=== PATIENT | female | born 1985 | race Caucasian/White ===

== ENCOUNTER 2019-06-08 04:29 | Inpatient (IN) | payer MEDICAID, OTHER ==
[~2019-06-08] VITALS: Ht 167.6 cm; Wt 92.0 kg
[~2019-06-08 04:29] MED LIST: GABA-826 PO; SERT100T32 PO
--- NOTE | 2019-06-08 04:50 | NUR ---
PT TO ED WITH C/O ETOH DETOX. REPORTS LAST DRINK WAS X2 HOURS AGO. PT REPORTS "TAKING SMALL SHOTS OF TEQUILA, INSTEAD OF DRINKING OUT OF THE BOTTLE". EMS REPORTS THAT PT SPOUSE SAID SHE WAS LETHARGIC AND UNABLE TO MOVE OR STAND UP. UPON EMS ARRIVAL PT EASILY ROUSABLE AND ABLE TO MOVE ALL 4, NEEDED X2 ASSIST TO GURNEY. PT REPORTS FEELING WEAK AND DIZZY. UPON ED ARRIVAL PT MOVES ALL 4 STRONG AND EQUAL BILATERALLY, NEURO INTACT. PT AOX4, ALERT TO VOICE. 700ML NS AND 4MG ZOFRAN PROVIDED BY EMS PRIOR TO ARRIVAL.
[2019-06-08] MEDS ORDERED: SODIUM CHLORIDE 0.9% 1,000ML IVBOLUS ONE ×2 (05:30→07:00)
[2019-06-08 05:48] LABS: ALBUMIN 2.6 g/dL (3.4-5.0); CALCIUM 6.6 mg/dL (8.5-10.1); CREATININE 2.36 mg/dL (0.55-1.02)
--- NOTE | 2019-06-08 05:55 | NUR ---
PT ABLE TO AMBULATE TO WHEELCHAIR TO BATHROOM FOR COMFORT. PT GAIT STEADY WITH STANDBY ASSIST. ATTEMPTING TO PROVIDE UA AT THIS TIME.
[2019-06-08 05:56] LABS: ALKALINE PHOSPHATASE 166 U/L (45-117); ANION GAP 20 mmol/L (5-15); BILIRUBIN,TOTAL 6.4 mg/dL (0.2-1.0); CHLORIDE 91 mmol/L (98-107); TOTAL PROTEIN 5.5 g/dL (6.4-8.2)
[2019-06-08 05:58] LABS: ALANINE AMINOTRANSFERASE 129 U/L (12-78)
[2019-06-08 06:06] LABS: MEAN CORPUSCULAR HEMOGLOBIN 36.6 pg (27.0-34.8); MEAN CORPUSCULAR VOLUME 107.7 fL (80-100); RED BLOOD COUNT 3.45 x10^6/uL (3.82-5.3); RED CELL DISTRIBUTION WIDTH 20.5 % (9.6-15.2)
[2019-06-08 06:10] LABS: MD YES
[2019-06-08 06:11] LABS: MEAN PLATELET VOLUME 7.9 fL (7.4-10.4); PLATELET COUNT 57 x10^3/uL (130-400)
[2019-06-08 06:14] LABS: BAND#(MANUAL) 1.28 x10^3/uL; BANDS%(MANUAL) 29 % (0-7); LYMPH#(MANUAL) 0.31 x10^3/uL (1-3.4); LYMPHS% (MANUAL) 7 % (22-44); METAMYELOCYTES# (MANUAL) 0.09 x10^3/uL (0-0); METAMYELOCYTES% (MANUAL) 2 % (0-1); MONOS#(MANUAL) 0.31 x10^3/uL (0.3-2.7); MONOS% (MANUAL) 7 % (2-9); SEG#(MANUAL) 2.42 x10^3/uL (1.8-6.8); SEGS% (MANUAL) 55 % (42-75)
[2019-06-08 06:15] LABS: <PLATELET ESTIMATE> DECREASED; <PLT MORPHOLOGY> NORMAL PLT MORPH; ANISOCYTOSIS 1+; POLYCHROMASIA 1+
[2019-06-08 06:25] LABS: INTERNATIONAL NORMALIZED RATIO 1.26 (0.93-1.1); PROTHROMBIN TIME 13.4 Seconds (9.6-11.5)
[2019-06-08] MEDS ORDERED: LORazepam 2 MG/ML, 1ML ONE (06:25)
--- NOTE | 2019-06-08 06:28 | NUR ---
IVF ORDERED FROM PHARMACY
[2019-06-08] MEDS ORDERED: LORazepam 2 MG/ML, 1ML IVPush ONE (06:30)
[2019-06-08] MEDS ORDERED: POTASSIUM CHLORIDE 20 MEQ, MAGNESIUM SULFATE 1 GM, FOLIC ACID 1 MG, THIAMINE 200 MG, MV... IV SCH (06:30)
[2019-06-08 06:38] LABS: CULTURE INDICATED? YES; HCG UR SG 1.009 (1.003-1.030); MICROSCOPIC INDICATED
--- NOTE | 2019-06-08 06:55 | NUR ---
ASSUMED CARE WITH REPORT RECEIVED FROM JOURDAN DACOSTA. HOSPITALIST AT BEDSIDE AND REQUESTING ANOTHER BOLUS OF IV FLUIDS. LITER STARTED NOTED
[2019-06-08] MEDS ORDERED: LORazepam 1MG TABLET PO PRN ×2 (07:00)
[2019-06-08] MEDS ORDERED: LORazepam 2 MG/ML, 1ML IV PRN ×5 (07:00)
[2019-06-08] MEDS ORDERED: ONDANSETRON 2MG/ML, 2ML IVPush PRN (07:00)
[2019-06-08] MEDS ORDERED: THIAMINE 200 MG in DEXTROSE 5% 50 ML IVPB ONE (07:00)
[2019-06-08] MEDS ORDERED: ONDANSETRON ODT 4 MG PO PRN (07:00)
[2019-06-08] MEDS ORDERED: FOLIC ACID 5 MG/ML IM ONE (07:00)
[2019-06-08] MEDS ORDERED: LORazepam 0.5MG TABLET PO PRN (07:00)
[2019-06-08] MEDS ORDERED: morphine SULFATE 10 MG/ML, 1ML IVPush PRN (07:00)
[2019-06-08] MEDS ORDERED: hydrALAzine 20 MG/ML, 1ML IVPush PRN (07:00)
--- NOTE | 2019-06-08 07:14 | NUR ---
PT NOTED TO HAVE ARM FOLDED WITH NO FLUIDS INFUSING. BOYFRIEND TO HOLD ARM UNFOLDED AND LITER PUT ON PRESSURE BAG
--- NOTE | 2019-06-08 07:30 | NUR ---
IV BOLUS COMPLETED AND BANANA BAG STARTED.
[2019-06-08 07:32] LABS: TROPONIN I 0.016 ng/mL (0.000-0.045)
--- NOTE | 2019-06-08 07:55 | NUR ---
PT GAVE VERBAL CONSENT THAT BOYFRIENRadha MARTINS CAN RECEIVE INFO REGARDING PT TELEPHONICALLY
[2019-06-08] MEDS ORDERED: MAGNESIUM SULFATE PMX 2GM/50ML 50 ML IV ONE ×2 (08:00→09:30)
[2019-06-08 08:30] VITALS: BP 78/50
[2019-06-08] MEDS ORDERED: LEVOFLOXACIN/PMX 500MG/100ML 100 ML IV SCH ×2 (08:30→11:29)
[2019-06-08 08:55] VITALS: BP 92/61
[2019-06-08] MEDS ORDERED: POTASSIUM CHLORIDE 10% 20 MEQ/15 ML UDC PO ONE (09:00)
[2019-06-08] MEDS ORDERED: THIAMINE 100MG TABLET PO ONE ×2 (09:30→10:30)
[2019-06-08] MEDS ORDERED: LACTATED RINGERS 1,000 ML IV SCH ×2 (10:00→22:30)
[2019-06-08] MEDS: CHLORDIAZEPOXIDE 25 MG CAPSULE PO SCH ×3 (10:24→22:32)
[2019-06-08] MEDS: NICOTINE 14MG/24 HR PATCH.TD24 TD SCH (10:24)
[2019-06-08 12:52] VITALS: BP 89/60
[2019-06-08 17:10] VITALS: BP 90/61
[2019-06-08 18:49] LABS: ALANINE AMINOTRANSFERASE 113 U/L (12-78); ALBUMIN 2.5 g/dL (3.4-5.0); ANION GAP 18 mmol/L (5-15); CALCIUM 6.5 mg/dL (8.5-10.1); CHLORIDE 93 mmol/L (98-107); CREATININE 2.88 mg/dL (0.55-1.02)
[2019-06-08 18:52] LABS: ALKALINE PHOSPHATASE 132 U/L (45-117); BILIRUBIN,TOTAL 6.3 mg/dL (0.2-1.0); TOTAL PROTEIN 5.6 g/dL (6.4-8.2)
[2019-06-08 19:06] LABS: BASOPHILS % (AUTO) 0 % (0-1); EOSINOPHILS # (AUTO) 0.01 x10^3/uL (0-0.4); EOSINOPHILS % (AUTO) 0 % (1-7); LYMPHOCYTES # (AUTO) 0.28 x10^3/uL (1-3.4); LYMPHOCYTES % (AUTO) 5 % (22-44); MD SCAN; MEAN CORPUSCULAR HEMOGLOBIN 36.6 pg (27.0-34.8); MEAN CORPUSCULAR HGB CONC 33.7 g/dL (32.4-35.8); MEAN CORPUSCULAR VOLUME 108.5 fL (80-100); MEAN PLATELET VOLUME 7.9 fL (7.4-10.4); MONOCYTES % (AUTO) 2 % (2-9); NEUTROPHILS # (AUTO) 4.95 x10^3/uL (1.8-6.8); NEUTROPHILS % (AUTO) 93 % (42-75); RED BLOOD COUNT 3.36 x10^6/uL (3.82-5.3); RED CELL DISTRIBUTION WIDTH 20.8 % (9.6-15.2)
[2019-06-08 19:09] LABS: PLATELET COUNT 38 x10^3/uL (130-400)
[2019-06-08] MEDS: OXYcodone IR 5MG TABLET PO PRN (20:40)
[2019-06-09] MEDS: OXYcodone IR 5MG TABLET PO PRN ×4 (04:12→20:26)
[2019-06-09] MEDS: CHLORDIAZEPOXIDE 25 MG CAPSULE PO SCH ×4 (04:12→22:32)
[2019-06-09 04:41] LABS: ALANINE AMINOTRANSFERASE 107 U/L (12-78); ALBUMIN 2.5 g/dL (3.4-5.0); ANION GAP 14 mmol/L (5-15); CHLORIDE 94 mmol/L (98-107); CHOLESTEROL, TOTAL 234 mg/dL (140-239); CREATININE 2.85 mg/dL (0.55-1.02)
[2019-06-09 04:59] LABS: MEAN CORPUSCULAR HEMOGLOBIN 36.4 pg (27.0-34.8); MEAN CORPUSCULAR HGB CONC 33.2 g/dL (32.4-35.8); MEAN CORPUSCULAR VOLUME 109.6 fL (80-100); RED BLOOD COUNT 3.25 x10^6/uL (3.82-5.3)
[2019-06-09 05:08] LABS: ALKALINE PHOSPHATASE 130 U/L (45-117); CHOL/HDL RATIO 23.4; HDL CHOL % 4 % (28-40); HDL CHOLESTEROL (DIRECT) 10 mg/dL (40-60); TOTAL PROTEIN 5.6 g/dL (6.4-8.2)
[2019-06-09 05:09] LABS: TRIGLYCERIDES 1163 mg/dL (50-200)
[2019-06-09 05:20] LABS: MEAN PLATELET VOLUME 9.1 fL (7.4-10.4)
[2019-06-09 05:21] LABS: PLATELET COUNT 44 x10^3/uL (130-400)
[2019-06-09 05:40] LABS: MD YES
[2019-06-09 05:44] LABS: ANISOCYTOSIS 1+; BAND#(MANUAL) 1.39 x10^3/uL; BANDS%(MANUAL) 33 % (0-7); EOS#(MANUAL) 0.04 x10^3/uL (0.0-0.4); EOS% (MANUAL) 1 % (1-7); LYMPH#(MANUAL) 0.25 x10^3/uL (1-3.4); LYMPHS% (MANUAL) 6 % (22-44); METAMYELOCYTES# (MANUAL) 0.13 x10^3/uL (0-0); METAMYELOCYTES% (MANUAL) 3 % (0-1); MONOS#(MANUAL) 0.21 x10^3/uL (0.3-2.7); MONOS% (MANUAL) 5 % (2-9); SEG#(MANUAL) 2.18 x10^3/uL (1.8-6.8); SEGS% (MANUAL) 52 % (42-75)
[2019-06-09 05:45] LABS: <PLATELET ESTIMATE> DECREASED; <PLT MORPHOLOGY> NORMAL PLT MORPH; PMNS WITH VACUOLES 1+
[2019-06-09] MEDS ORDERED: SODIUM CHLORIDE 0.9% 1,000ML IVBOLUS ONE (06:30)
[2019-06-09] MEDS ORDERED: LORazepam 2 MG/ML, 1ML IVPush PRN (06:30)
[2019-06-09] MEDS: NICOTINE 14MG/24 HR PATCH.TD24 TD SCH (10:10)
[2019-06-09] MEDS: POTASSIUM CHLORIDE 20 MEQ, MAGNESIUM SULFATE 1 GM, FOLIC ACID 1 MG, THIAMINE 200 MG, MV... IV SCH (12:08)
[2019-06-09] MEDS: LEVOFLOXACIN/PMX 250MG/50ML 50 ML IV SCH (14:16)
[2019-06-09] MEDS: LACTATED RINGERS 1,000 ML IV SCH (21:43)
[2019-06-10] MEDS: OXYcodone IR 5MG TABLET PO PRN ×4 (03:56→20:56)
[2019-06-10 04:00] LABS: MEAN CORPUSCULAR HEMOGLOBIN 36.7 pg (27.0-34.8); MEAN CORPUSCULAR HGB CONC 33.2 g/dL (32.4-35.8); MEAN CORPUSCULAR VOLUME 110.5 fL (80-100); MEAN PLATELET VOLUME 8.9 fL (7.4-10.4); RED BLOOD COUNT 2.83 x10^6/uL (3.82-5.3); RED CELL DISTRIBUTION WIDTH 20.1 % (9.6-15.2)
[2019-06-10 04:11] LABS: ALANINE AMINOTRANSFERASE 78 U/L (12-78); ALBUMIN 2.2 g/dL (3.4-5.0); ANION GAP 10 mmol/L (5-15); CALCIUM 7.3 mg/dL (8.5-10.1); CHLORIDE 105 mmol/L (98-107); CREATININE 2.17 mg/dL (0.55-1.02)
[2019-06-10 04:14] LABS: ALKALINE PHOSPHATASE 173 U/L (45-117); BILIRUBIN,TOTAL 10.6 mg/dL (0.2-1.0); TOTAL PROTEIN 5.2 g/dL (6.4-8.2)
[2019-06-10 04:21] LABS: PLATELET COUNT 45 x10^3/uL (130-400)
[2019-06-10 04:24] LABS: BASOPHILS # (AUTO) 0.02 x10^3/uL (0-0.1); BASOPHILS % (AUTO) 1 % (0-1); EOSINOPHILS % (AUTO) 3 % (1-7); LYMPHOCYTES # (AUTO) 0.65 x10^3/uL (1-3.4); LYMPHOCYTES % (AUTO) 16 % (22-44); MD SCAN; MONOCYTES # (AUTO) 0.06 x10^3/uL (0.2-0.8); MONOCYTES % (AUTO) 2 % (2-9); NEUTROPHILS # (AUTO) 3.13 x10^3/uL (1.8-6.8); NEUTROPHILS % (AUTO) 79 % (42-75)
[2019-06-10] MEDS: LACTATED RINGERS 1,000 ML IV SCH ×3 (04:37→23:39)
[2019-06-10] MEDS: CHLORDIAZEPOXIDE 25 MG CAPSULE PO SCH (04:37)
[2019-06-10 05:02] VITALS: BP 115/78
[2019-06-10] MEDS ORDERED: ALBUMIN HUMAN 25% 100 ML IV ONE (08:00)
[2019-06-10 08:26] LABS: CLOSTRIDIUM DIFFICILE ANTIGEN POSITIVE; CLOSTRIDIUM DIFFICILE TOXIN NEGATIVE (Negative)
[2019-06-10] MEDS: POTASSIUM CHLORIDE 20 MEQ TAB.ER.PRT PO SCH ×2 (08:34→17:00)
[2019-06-10] MEDS: NICOTINE 14MG/24 HR PATCH.TD24 TD SCH (10:40)
[2019-06-10] MEDS ORDERED: LIDOCAINE 1%, 10ML ONE (11:47)
[2019-06-10] MEDS ORDERED: QUET200T4 PO (14:28)
[2019-06-10] MEDS ORDERED: TRAZ-175 PO (14:28)
[2019-06-10] MEDS: LEVOFLOXACIN/PMX 250MG/50ML 50 ML IV SCH (14:45)
[2019-06-10] MEDS: POTASSIUM CHLORIDE 20 MEQ, MAGNESIUM SULFATE 1 GM, FOLIC ACID 1 MG, THIAMINE 200 MG, MV... IV SCH (16:00)
[2019-06-10 16:58] VITALS: BP 118/88
[2019-06-10 20:04] VITALS: BP 126/90
[2019-06-10] MEDS: QUETIAPINE 200 MG TABLET PO SCH (20:56)
[2019-06-10] MEDS ORDERED: TRAZODONE 100MG TABLET PO PRN (21:00)
[2019-06-11 01:01] VITALS: BP 121/84
[2019-06-11] MEDS: LACTATED RINGERS 1,000 ML IV SCH ×2 (05:32→12:25)
[2019-06-11 06:50] VITALS: BP 102/71
[2019-06-11] MEDS: SERTRALINE 100MG TABLET PO SCH (08:41)
[2019-06-11 09:26] LABS: ANION GAP 7 mmol/L (5-15); CHLORIDE 109 mmol/L (98-107); CREATININE 1.04 mg/dL (0.55-1.02)
[2019-06-11 09:45] LABS: MEAN CORPUSCULAR HEMOGLOBIN 37.1 pg (27.0-34.8); MEAN CORPUSCULAR HGB CONC 32.9 g/dL (32.4-35.8); MEAN CORPUSCULAR VOLUME 112.8 fL (80-100); RED BLOOD COUNT 3.14 x10^6/uL (3.82-5.3); RED CELL DISTRIBUTION WIDTH 19.9 % (9.6-15.2)
[2019-06-11 09:46] LABS: MD YES; MEAN PLATELET VOLUME 9.3 fL (7.4-10.4); PLATELET COUNT 50 x10^3/uL (130-400)
[2019-06-11 09:56] LABS: BAND#(MANUAL) 0.23 x10^3/uL; BANDS%(MANUAL) 5 % (0-7); EOS#(MANUAL) 0.14 x10^3/uL (0.0-0.4); EOS% (MANUAL) 3 % (1-7); LYMPH#(MANUAL) 0.54 x10^3/uL (1-3.4); LYMPHS% (MANUAL) 12 % (22-44); METAMYELOCYTES# (MANUAL) 0.23 x10^3/uL (0-0); METAMYELOCYTES% (MANUAL) 5 % (0-1); MONOS#(MANUAL) 0.77 x10^3/uL (0.3-2.7); MONOS% (MANUAL) 17 % (2-9); MYELOCYTES# (MANUAL) 0.05 x10^3/uL (0-0); MYELOCYTES% (MANUAL) 1 % (0-0); NRBC % (MANUAL) 2 % (0-1); SEG#(MANUAL) 2.57 x10^3/uL (1.8-6.8); SEGS% (MANUAL) 57 % (42-75)
[2019-06-11 09:59] LABS: <PLATELET ESTIMATE> DECREASED; <PLT MORPHOLOGY> NORMAL PLT MORPH; ANISOCYTOSIS 2+; POLYCHROMASIA 1+; TARGET CELLS 1+
[2019-06-11] MEDS: NICOTINE 14MG/24 HR PATCH.TD24 TD SCH (10:42)
[2019-06-11] MEDS: OXYcodone IR 5MG TABLET PO PRN ×3 (10:42→20:19)
[2019-06-11] MEDS: LEVOFLOXACIN/PMX 250MG/50ML 50 ML IV SCH (14:18)
[2019-06-11 14:35] VITALS: BP 115/84
[2019-06-11 19:02] VITALS: BP 120/86
[2019-06-11] MEDS: QUETIAPINE 200 MG TABLET PO SCH (20:19)
[2019-06-12 01:07] VITALS: BP 128/88
[2019-06-12] MEDS: LACTATED RINGERS 1,000 ML IV SCH ×2 (02:48→20:15)
[2019-06-12] MEDS: VANCOMYCIN 50 MG/ML ORAL SUSP PO SCH ×3 (06:12→18:05)
[2019-06-12 08:51] LABS: MEAN CORPUSCULAR HEMOGLOBIN 37.5 pg (27.0-34.8); MEAN CORPUSCULAR HGB CONC 33.4 g/dL (32.4-35.8); MEAN CORPUSCULAR VOLUME 112.3 fL (80-100); MEAN PLATELET VOLUME 7.9 fL (7.4-10.4); PLATELET COUNT 85 x10^3/uL (130-400); RED BLOOD COUNT 2.76 x10^6/uL (3.82-5.3); RED CELL DISTRIBUTION WIDTH 19.6 % (9.6-15.2)
[2019-06-12 08:57] LABS: ALANINE AMINOTRANSFERASE 68 U/L (12-78); ALBUMIN 2.2 g/dL (3.4-5.0); ANION GAP 7 mmol/L (5-15); CALCIUM 8.2 mg/dL (8.5-10.1); CHLORIDE 108 mmol/L (98-107)
[2019-06-12 08:58] VITALS: BP 101/67
[2019-06-12 08:59] LABS: ALKALINE PHOSPHATASE 280 U/L (45-117); BILIRUBIN,TOTAL 8.5 mg/dL (0.2-1.0)
[2019-06-12] MEDS: SERTRALINE 100MG TABLET PO SCH (09:26)
[2019-06-12 09:40] LABS: MD YES
[2019-06-12 09:46] LABS: BAND#(MANUAL) 0.64 x10^3/uL; BANDS%(MANUAL) 14 % (0-7); EOS#(MANUAL) 0.28 x10^3/uL (0.0-0.4); EOS% (MANUAL) 6 % (1-7); METAMYELOCYTES# (MANUAL) 0.23 x10^3/uL (0-0); METAMYELOCYTES% (MANUAL) 5 % (0-1); MONOS#(MANUAL) 0.78 x10^3/uL (0.3-2.7); MONOS% (MANUAL) 17 % (2-9); MYELOCYTES# (MANUAL) 0.23 x10^3/uL (0-0); MYELOCYTES% (MANUAL) 5 % (0-0); NRBC % (MANUAL) 3 % (0-1); SEG#(MANUAL) 1.38 x10^3/uL (1.8-6.8); SEGS% (MANUAL) 30 % (42-75)
[2019-06-12 09:47] LABS: REACTIVE LYMPHS # (MANUAL) 0.09 x10^3/uL (0-0); REACTIVE LYMPHS % (MANUAL) 2 % (0-0)
[2019-06-12 09:48] LABS: ANISOCYTOSIS 1+; LYMPH#(MANUAL) 0.97 x10^3/uL (1-3.4); LYMPHS% (MANUAL) 21 % (22-44)
[2019-06-12 09:49] LABS: <PLATELET ESTIMATE> DECREASED; <PLT MORPHOLOGY> NORMAL PLT MORPH
[2019-06-12] MEDS: NICOTINE 14MG/24 HR PATCH.TD24 TD SCH (10:52)
[2019-06-12] MEDS ORDERED: POTASSIUM CHLORIDE 20 MEQ TAB.ER.PRT PO ONE ×2 (11:00→13:00)
[2019-06-12] MEDS: OXYcodone IR 5MG TABLET PO PRN ×2 (12:16→18:22)
[2019-06-12] MEDS: LEVOFLOXACIN/PMX 250MG/50ML 50 ML IV SCH (13:34)
[2019-06-12 14:09] VITALS: BP 125/87
[2019-06-12] MEDS: QUETIAPINE 200 MG TABLET PO SCH (20:14)
[2019-06-12 20:21] VITALS: BP 123/85
[2019-06-13 00:50] VITALS: BP 99/66
[2019-06-13] MEDS: VANCOMYCIN 50 MG/ML ORAL SUSP PO SCH ×4 (01:23→18:40)
[2019-06-13 08:18] LABS: MEAN CORPUSCULAR HEMOGLOBIN 36.9 pg (27.0-34.8); MEAN CORPUSCULAR HGB CONC 32.6 g/dL (32.4-35.8); MEAN CORPUSCULAR VOLUME 113.2 fL (80-100); MEAN PLATELET VOLUME 8.4 fL (7.4-10.4); PLATELET COUNT 111 x10^3/uL (130-400); RED BLOOD COUNT 2.81 x10^6/uL (3.82-5.3); RED CELL DISTRIBUTION WIDTH 19.9 % (9.6-15.2)
[2019-06-13 08:22] LABS: ALANINE AMINOTRANSFERASE 74 U/L (12-78); ALBUMIN 2.3 g/dL (3.4-5.0); ANION GAP 6 mmol/L (5-15); CALCIUM 8.4 mg/dL (8.5-10.1); CHLORIDE 111 mmol/L (98-107); CREATININE 0.57 mg/dL (0.55-1.02)
[2019-06-13 08:24] LABS: ALKALINE PHOSPHATASE 334 U/L (45-117); BILIRUBIN,TOTAL 6.4 mg/dL (0.2-1.0); TOTAL PROTEIN 5.5 g/dL (6.4-8.2)
[2019-06-13 08:30] VITALS: BP 106/74
[2019-06-13 08:56] LABS: MD YES
[2019-06-13 08:59] LABS: BASOS#(MANUAL) 0.06 x10^3/uL (0-0.1); BASOS% (MANUAL) 1 % (0-1)
[2019-06-13 09:00] LABS: EOS#(MANUAL) 0.34 x10^3/uL (0.0-0.4); EOS% (MANUAL) 6 % (1-7); METAMYELOCYTES# (MANUAL) 0.23 x10^3/uL (0-0); METAMYELOCYTES% (MANUAL) 4 % (0-1); MONOS% (MANUAL) 14 % (2-9); MYELOCYTES# (MANUAL) 0.34 x10^3/uL (0-0); MYELOCYTES% (MANUAL) 6 % (0-0); NRBC % (MANUAL) 2 % (0-1)
[2019-06-13 09:01] LABS: ANISOCYTOSIS 1+; BAND#(MANUAL) 1.31 x10^3/uL; BANDS%(MANUAL) 23 % (0-7); LYMPH#(MANUAL) 1.25 x10^3/uL (1-3.4); LYMPHS% (MANUAL) 22 % (22-44); SEG#(MANUAL) 1.37 x10^3/uL (1.8-6.8); SEGS% (MANUAL) 24 % (42-75)
[2019-06-13 09:02] LABS: POLYCHROMASIA 1+; STOMATOCYTES 1+; TARGET CELLS 1+
[2019-06-13 09:03] LABS: <PLATELET ESTIMATE> DECREASED; <PLT MORPHOLOGY> NORMAL PLT MORPH
[2019-06-13] MEDS: SERTRALINE 100MG TABLET PO SCH (09:47)
[2019-06-13] MEDS: OXYcodone IR 5MG TABLET PO PRN ×2 (10:07→18:40)
[2019-06-13] MEDS: NICOTINE 14MG/24 HR PATCH.TD24 TD SCH (10:36)
[2019-06-13 14:00] VITALS: BP 141/98
[2019-06-13] MEDS: LEVOFLOXACIN/PMX 250MG/50ML 50 ML IV SCH (14:16)
[2019-06-13 18:34] VITALS: BP 124/87
[2019-06-13] MEDS: QUETIAPINE 200 MG TABLET PO SCH (20:09)
[2019-06-13 23:59] VITALS: BP 120/80
[2019-06-14] MEDS: VANCOMYCIN 50 MG/ML ORAL SUSP PO SCH ×3 (01:08→15:12)
[2019-06-14 06:42] LABS: MEAN CORPUSCULAR HEMOGLOBIN 36.9 pg (27.0-34.8); MEAN CORPUSCULAR HGB CONC 32.9 g/dL (32.4-35.8); MEAN CORPUSCULAR VOLUME 112.2 fL (80-100); MEAN PLATELET VOLUME 8.4 fL (7.4-10.4); PLATELET COUNT 130 x10^3/uL (130-400); RED BLOOD COUNT 2.67 x10^6/uL (3.82-5.3); RED CELL DISTRIBUTION WIDTH 19.3 % (9.6-15.2)
[2019-06-14 06:46] LABS: ALANINE AMINOTRANSFERASE 64 U/L (12-78); ALBUMIN 2.1 g/dL (3.4-5.0); ANION GAP 5 mmol/L (5-15); CALCIUM 8.1 mg/dL (8.5-10.1); CHLORIDE 110 mmol/L (98-107)
[2019-06-14 06:49] LABS: ALKALINE PHOSPHATASE 304 U/L (45-117); BILIRUBIN,TOTAL 3.9 mg/dL (0.2-1.0); TOTAL PROTEIN 5.1 g/dL (6.4-8.2)
[2019-06-14 07:25] LABS: MD YES
[2019-06-14 07:30] LABS: BAND#(MANUAL) 1.33 x10^3/uL; BANDS%(MANUAL) 23 % (0-7); EOS#(MANUAL) 0.35 x10^3/uL (0.0-0.4); EOS% (MANUAL) 6 % (1-7); LYMPH#(MANUAL) 0.81 x10^3/uL (1-3.4); LYMPHS% (MANUAL) 14 % (22-44); METAMYELOCYTES# (MANUAL) 0.41 x10^3/uL (0-0); METAMYELOCYTES% (MANUAL) 7 % (0-1); MONOS#(MANUAL) 0.46 x10^3/uL (0.3-2.7); MONOS% (MANUAL) 8 % (2-9); MYELOCYTES# (MANUAL) 0.17 x10^3/uL (0-0); MYELOCYTES% (MANUAL) 3 % (0-0); NRBC % (MANUAL) 4 % (0-1); SEG#(MANUAL) 2.26 x10^3/uL (1.8-6.8); SEGS% (MANUAL) 39 % (42-75)
[2019-06-14 07:31] LABS: ANISOCYTOSIS 1+; POLYCHROMASIA 1+
[2019-06-14 07:33] LABS: <PLATELET ESTIMATE> ADEQUATE; <PLT MORPHOLOGY> NORMAL PLT MORPH; STOMATOCYTES 1+
[2019-06-14 07:50] VITALS: BP 113/77
[2019-06-14] MEDS ORDERED: POTASSIUM CHLORIDE 20 MEQ TAB.ER.PRT PO ONE ×2 (09:00→11:00)
[2019-06-14] MEDS ORDERED: VANC125C11 PO (09:09)
[2019-06-14] MEDS ORDERED: LEVO750T26 PO (09:09)
[2019-06-14] MEDS ORDERED: OXYC5TAB3 PO (09:09)
[2019-06-14] MEDS: NICOTINE 14MG/24 HR PATCH.TD24 TD SCH (09:23)
[2019-06-14] MEDS: OXYcodone IR 5MG TABLET PO PRN ×2 (09:24→15:12)
[2019-06-14] MEDS: SERTRALINE 100MG TABLET PO SCH (09:24)
[2019-06-14] MEDS ORDERED: NICO-486 TD (09:31)
[2019-06-14 14:17] VITALS: BP 136/95
[2019-06-14] MEDS ORDERED: LEVOFLOXACIN 250 MG TABLET PO SCH (15:00)
[2019-06-14] MEDS ORDERED: LEVOFLOXACIN 750 MG TABLET PO SCH (15:00)
== END 2019-06-14 15:57 | disposition home or self-care (01) | DRG 720 ==
LOC: ED 04:55 → SUATTDRO 06:36 → EDIP 06:37 → 4EST 08:24 → CCU 18:36 → 3N 06-10 13:18
PROVIDERS: ADMIT Hospitalist; ATTEND Hospitalist
DX: A41.9 Sepsis, unspecified organism (principal); N17.0 Acute kidney failure with tubular necrosis; G92 Toxic encephalopathy; K56.609 Unspecified intestinal obstruction, unspecified as to partial versus complete obstruction; K85.20 Alcohol induced acute pancreatitis without necrosis or infection; A04.72 Enterocolitis due to Clostridium difficile, not specified as recurrent; D69.59 Other secondary thrombocytopenia; E83.42 Hypomagnesemia; E87.1 Hypo-osmolality and hyponatremia; B96.20 Unspecified Escherichia coli [E. coli] as the cause of diseases classified elsewhere; D53.9 Nutritional anemia, unspecified; D75.89 Other specified diseases of blood and blood-forming organs; E87.6 Hypokalemia; F10.239 Alcohol dependence with withdrawal, unspecified; F17.210 Nicotine dependence, cigarettes, uncomplicated; F32.9 Major depressive disorder, single episode, unspecified; F41.9 Anxiety disorder, unspecified; K70.11 Alcoholic hepatitis with ascites; N39.0 Urinary tract infection, site not specified; Z80.0 Family history of malignant neoplasm of digestive organs; Z88.1 Allergy status to other antibiotic agents; Z90.710 Acquired absence of both cervix and uterus
CPT/HCPCS: 36415; 49083; 74018; 74176; 76700; 80048; 80053; 80061; 80074; 80307; 81001; 81025; 82043; 82140; 82533; 82570; 82607; 83690; 83735; 84443; 84484; 85025; 85610; 87077; 87081; 87086; 87186; 87324; 87493; 93005; 96374; 96375; G0378; J1956; J3370; J3411; J3475; J3480; J7042; P9047; J2060; J7030; J7120